=== PATIENT | female | born 1995 | race Caucasian/White ===

== ENCOUNTER 2017-03-08 21:59 | Emergency (ER) | payer SELFPAY ==
[~2017-03-08] VITALS: Ht 154.9 cm; Wt 58.0 kg
[2017-03-08] MEDS ORDERED: ORTHO TRI-CY1 TABLE1 PO (23:50)
[2017-03-08] MEDS ORDERED: DELTASONE20 M1 PO (23:57)
[2017-03-08] MEDS ORDERED: ZITHROMAX Z-PA250 MG PO (23:57)
[2017-03-08] MEDS ORDERED: PHENERGAN-CODE120 ML PO (23:57)
[2017-03-09 00:41] VITALS: BP 121/77
== END 2017-03-09 00:42 | disposition home or self-care (01) ==
LOC: EME 21:59 → EXP 21:59
DX: J40 Bronchitis, not specified as acute or chronic (principal); F17.200 Nicotine dependence, unspecified, uncomplicated
CPT/HCPCS: 99281; 99284; J7512

== ENCOUNTER 2017-05-04 17:55 | Emergency (ER) | payer OTHER ==
[~2017-05-04] VITALS: Ht 157.5 cm; Wt 59.9 kg
[~2017-05-04 17:55] MED LIST: DELTASONE20 M1 PO; ORTHO TRI-CY1 TABLE1 PO; PHENERGAN-CODE120 ML PO; ZITHROMAX Z-PA250 MG PO
[2017-05-04 18:46] LABS: MCHC 34.4 G/DL (30.0-36.0); MCV 89.9 FL (83-99); MEAN PLAT.VOLUME 9.7 uM^3 (9.5-12.4); PLATELET COUNT 278 K/uL (156-360); RBC DIS.WIDTH-CV 12.3 % (11.8-14.6); RBC DIS.WIDTH-SD 40.5 % (39-53); RED BLOOD COUNT 3.78 M/uL (3.80-5.20); WHITE BLOOD COUNT 11.3 K/uL (4.1-10.2)
[2017-05-04 18:55] LABS: CHLORIDE 107 mEq/L (99-109); POTASSIUM 3.2 mEq/L (3.7-5.4); SODIUM 137 mEq/L (136-147)
[2017-05-04 18:57] LABS: GLUCOSE 90 mg/dL (70-99)
[2017-05-04 18:58] LABS: ANION GAP 7 MEQ/L (2-14)
[2017-05-04 18:59] LABS: TOTAL BILIRUBIN 0.4 mg/dL (0.0-1.0)
[2017-05-04 19:01] LABS: ALKALINE PHOSPHATASE 45 IU/L (3-129); GFR ESTIMATE (CALCULATED) > 59 mL/min/
[2017-05-04 19:02] LABS: UREA NITROGEN (BUN) 4 mg/dL (9-23)
[2017-05-04 19:19] LABS: ADD MIUA? YES; BILIRUBIN NEGATIVE; BLOOD NEGATIVE; COLOR YELLOW ((YELLOW)); GLUCOSE (STRIP) NEGATIVE; KETONES 20; LEUKOCYTES NEGATIVE; NITRITE NEGATIVE; PROTEIN (STRIP) NEGATIVE; SPECIFIC GRAVITY 1.012 (1.000-1.030); UROBILINOGEN 0.2 MG/DL (0.2-1.0)
[2017-05-04 19:30] LABS: BACTERIA RARE /HPF; EPITHELIAL CELLS RARE /HPF; MUCUS TRACE /LPF; RED BLOOD CELLS 0-5 /HPF (0-5); UCUL ADDED? NO; WHITE BLOOD CELLS 0-5 /HPF (0-5)
[2017-05-04 19:42] LABS: QUANTITATIVE HCG 90436.4 MIU/ML
[2017-05-04] MEDS ORDERED: ZOFRAN4 MG PO (22:39)
[2017-05-04 22:56] VITALS: BP 112/56
== END 2017-05-04 23:01 | disposition home or self-care (01) ==
LOC: EME 17:55
DX: O20.0 Threatened abortion (principal); O99.331 Smoking (tobacco) complicating pregnancy, first trimester; F17.200 Nicotine dependence, unspecified, uncomplicated; Z3A.01 Less than 8 weeks gestation of pregnancy
CPT/HCPCS: 76801; 80053; 81003; 84702; 85027; 99281; 99284

== ENCOUNTER 2017-12-21 03:39 | Inpatient (IN) | payer OTHER ==
[2017-12-21] VITALS (12 sets, daily range): BP systolic 104–164; BP diastolic 59–81
[~2017-12-21] VITALS: Ht 157.5 cm; Wt 73.6 kg
[~2017-12-21 03:39] MED LIST changes: +ZOFRAN4 MG PO
[2017-12-21] MEDS ORDERED: IBUPROFEN800 MG PO (04:45)
[2017-12-21] MEDS ORDERED: PRENATABS RX T1 EACH PO (05:01)
[2017-12-21] MEDS ORDERED: IRON160 M1 PO (05:02)
[2017-12-21 05:03] LABS: BASOPHIL (%) 0.2 % (0-1); EOSINOPHIL (%) 0.1 % (0-5); HEMATOCRIT 31.8 % (36.0-46.0); HEMOGLOBIN 11.2 G/DL (11.9-15.5); IMMATURE GRANULOCYTE (%) 0.6 % (0.0-0.7); LYMPHOCYTE (%) 7.4 % (15-42); LYMPHOCYTE COUNT 1.6 K/uL (1.0-2.8); MCH 32.3 PG (29.0-34.0); MCHC 35.2 G/DL (30.0-36.0); MCV 91.6 FL (83-99); MONOCYTE (%) 5.5 % (3-12); MONOCYTE COUNT 1.2 K/uL (0-0.8); NEUTROPHIL (%) 86.2 % (45-76); NEUTROPHIL COUNT 18.2 K/uL (1.8-6.4); PLATELET COUNT 242 K/uL (156-360); RBC DIS.WIDTH-CV 12.4 % (11.8-14.6); RBC DIS.WIDTH-SD 41.1 % (39-53); RED BLOOD COUNT 3.47 M/uL (3.80-5.20); WHITE BLOOD COUNT 21.1 K/uL (4.1-10.2)
[2017-12-21 15:59] LABS: AMPHETAMINE NEGATIVE (500 ng/mL); BARBITURATES NEGATIVE (200 ng/mL); BENZODIAZEPINES NEGATIVE (150 ng/mL); BUPRENORPHINE NEGATIVE (10 ng/mL); COCAINE NEGATIVE (150 ng/mL); METHADONE NEGATIVE (200 ng/mL); METHAMPHETAMINE NEGATIVE (500 ng/mL); OPIATES (MORPHINE) NEGATIVE (100 ng/mL); OXYCODONE NEGATIVE (100 ng/mL); PHENCYCLIDINE NEGATIVE (25 ng/mL); PROPOXYPHENE NEGATIVE (300 ng/mL); THC CANNABINOIDS PRESUMPTIVE POSITIVE (50 ng/mL); TRICYCLIC ANTIDEPRESSANTS NEGATIVE (300 ng/mL)
[2017-12-22 22:44] VITALS: BP 116/58
[2017-12-23 07:33] VITALS: BP 112/52
[2017-12-23] MEDS ORDERED: IBUPROFEN800 MG PO (10:15)
== END 2017-12-23 12:00 | disposition home or self-care (01) | DRG 775 ==
LOC: LDRP-OP 03:39 → 2WEST 03:40 → LDRP-OP 01-19 09:21
PROVIDERS: Midwife
PROC: 10E0XZZ Delivery of Products of Conception, External Approach (ICD-10-PCS; principal; 2017-12-21)
PROC: 0HQ9XZZ Repair Perineum Skin, External Approach (ICD-10-PCS; principal; 2017-12-21)
DX: O70.0 First degree perineal laceration during delivery (principal); O99.324 Drug use complicating childbirth; Z37.0 Single live birth; Z3A.40 40 weeks gestation of pregnancy; O99.334 Smoking (tobacco) complicating childbirth; F17.200 Nicotine dependence, unspecified, uncomplicated; F12.90 Cannabis use, unspecified, uncomplicated; O62.3 Precipitate labor
CPT/HCPCS: 82247; 82248; 84999; 85025; J2590